=== PATIENT | female | born 1955 | race Caucasian/White ===

== ENCOUNTER 2016-09-30 17:24 | Inpatient (IN) | payer BC ==
[2016-09-30] MEDS ORDERED: NS 0.9% 1000 ML* 1,000 ML IV ONE ×2 (17:59→18:00)
[2016-09-30] MEDS ORDERED: Piperac/Tazob 3.375 gm in NS* 3.375 GM/100 ML BAG IVPB ONE (18:00)
[2016-09-30 18:30] LABS: Hematocrit 32 % (35-47); Hemoglobin 10.4 g/dl (12.0-16.0); Mean Corpuscular HGB Conc 33 g/dl (31-36); Mean Corpuscular Hemoglobin 30 pg (27-31); Mean Corpuscular Volume 91 fL (80-97); Mean Platelet Volume 8 um3 (7.4-10.4); Red Blood Count 3.51 10^6/ul (4.0-5.4); Red Cell Distribution Width 17 % (10.5-15); White Blood Count 14.5 10^3/ul (3.5-10.8)
--- NOTE | 2016-09-30 18:30 | RAD ---
HISTORY: Fever, chemotherapy, evaluate for pneumonia COMPARISONS: February 17, 2016 VIEWS:1: Single frontal portable view of the chest at 6:05 PM FINDINGS: LINES AND TUBES: None. CARDIOMEDIASTINAL SILHOUETTE: The cardiomediastinal silhouette is obscured, and shifted to the left. PLEURA: The patient appears to be status post left pneumonectomy. LUNG PARENCHYMA: There is opacification of the left hemithorax. The patient appears to be status post left pneumonectomy ABDOMEN: The upper abdomen is clear. There is no subphrenic gas. BONES AND SOFT TISSUES: No bone or soft tissue abnormalities are noted. IMPRESSION: 1. THERE IS OPACIFICATION OF LEFT HEMITHORAX. THE PATIENT APPEARS TO BE STATUS POST LEFT PNEUMONECTOMY. IN THE ABSENCE OF A HISTORY OF PNEUMONECTOMY, THIS MAY REPRESENT A LARGE PLEURAL EFFUSION. 2. THE RIGHT LUNG FIELD IS CLEAR.
[2016-09-30 18:31] LABS: Add Diff/Slide Review? Slide Review Added; Comments Flag Yes
[2016-09-30 18:36] LABS: Urine Bilirubin Negative (Negative); Urine Glucose Negative (Negative); Urine Nitrite Negative (Negative)
[2016-09-30 18:43] LABS: Albumin 3.8 g/dL (3.2-5.2); BUN/Creatinine Ratio 11.7 (8-20); Calcium 9.2 mg/dL (8.6-10.3); EGFR African American 98.3 (>60); EGFR Non-African American 76.5 (>60); Globulin 3.3 g/dL (2-4); Total Bilirubin 0.2 mg/dL (0.2-1.0); Total Protein 7.1 g/dL (6.4-8.9)
[2016-09-30] MEDS ORDERED: Acetaminophen TAB* 325 MG ONE (18:50)
[2016-09-30 18:57] LABS: Eosinophils % 1 % (0-6); Immature Granulocytes 20 % (0-9); Macrocytosis 1+; Microcytosis 1+; Neutrophil % 67 % (38-83); Polychromasia 1+; Reactive Lymph % 1 % (0-6)
[2016-09-30] MEDS ORDERED: Acetaminophen TAB* 325 MG PO ONE (18:57)
[2016-09-30] MEDS ORDERED: Ciprofloxacin 400MG IVPREMIX(* 400 MG/200 ML BAG IVPB ONE (19:06)
[2016-09-30] MEDS ORDERED: Vancomycin(*) 1,000 MG in NS 0.9% 250 ML* 250 ML IVPB ONE (19:07)
[2016-09-30 19:12] LABS: Potassium 4.1 mmol/L (3.5-5.0)
[2016-09-30] MEDS ORDERED: Ondansetron INJ* 2 MG/ML VIAL IV PRN (19:51)
[2016-09-30] MEDS ORDERED: Piperac/Tazob 3.375 gm in NS* 3.375 GM/100 ML BAG IVPB SCH (20:00)
--- NOTE | 2016-09-30 20:21 | ED ---
Christopher Willingham Anna, scribed for Connor James MD on 09/30/16 at 1800 . HPI Febrile Illness - HPI Summary HPI Summary: Patient is a 61-year-old female coming to [facility] presenting with a fever that peaked this afternoon at 100.8. The patient is receiving chemotherapy treatment at [facility], most recently 10 days ago. Her doctor told her to go to the ED if her temperature surpassed 100.4, so she came to the ED today. With the fever, she experienced chills and shaking. Additionally, she has a cough at baseline, but she feels like her cough started to change last night. This morning it felt more like a cold. Denies urinary symptoms, vomiting, diarrhea, rashes, headache , neck pain, or pain of any kind. She was previously on medication for nausea, which she stopped taking a few days ago. She is taking medication for her cough. 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 The cancer has spread and she is receiving chemotherapy treatment now. - History of Current Complaint Chief Complaint: EDFever Time Seen by Provider: 09/30/16 17:44 Hx Obtained From: Patient, Family/Supervisor Filling And Packing - , daughter, and son Pain Intensity: 0 - Allergy/Home Medications Allergies/Adverse Reactions: Allergies Allergy/AdvReac Type Severity Reaction Status Date / Time No Known Allergies Allergy Verified 09/30/16 17:27 PMH/Surg Hx/FS Hx/Imm Hx Endocrine/Hematology History: Denies: Hx Diabetes, Hx Thyroid Disease Cardiovascular History: Denies: Hx Hypertension Respiratory History: Reports: Hx Asthma Denies: Hx Chronic Obstructive Pulmonary Disease (COPD) GI History: Denies: Hx Ulcer - Cancer History Cancer Type, Location and Year: atypical carcinoid tumor with mets Hx Chemotherapy: Yes - Surgical History Surgery Procedure, Year, and Place: wisdom teeth; LEFT PNEUMONECTOMY Infectious Disease History: No Infectious Disease History: Denies: Hx Clostridium Difficile, Hx Hepatitis, Hx Human Immunodeficiency Virus (HIV), Hx of Known/Suspected MRSA, Hx Shingles, Hx Tuberculosis, Hx Known/ Suspected VRE, Hx Known/Suspected VRSA, History Other Infectious Disease, Traveled Outside the [place] in Last 30 Days - Family History Known Family History: Positive: Hypertension - Social History Lives: With Family Alcohol Use: None Alcohol Amount: 2 drinks Substance Use Type: Reports: None Hx Tobacco Use: No Smoking Status (MU): Never Smoked Tobacco Review of Systems Positive: Fever, Chills Positive: Cough All Other Systems Reviewed And Are Negative: Yes Physical Exam - Summary Physical Exam Summary: General: Comfortable, pleasant, alert, nontoxic HEENT: Moist mucosa, pharynx no redness or exudate, No sinus percussion tenderness. TMs pearly white, no effusions. Neck: Soft, supple, no adenopathy, no edema, full range of motion. No mastoid tenderness. Heart: S1, S2, no murmurs, rubs, or gallops, tachycardic regular Lungs: Clear to auscultation, breathing comfortable, no wheezes or rales. Diminshed breath sounds on left. Abdominal: Soft, flat, nontender. No CVA tenderness. Extremities: No edema, no calf tenderness, calves soft. Neuro: Alert and oriented x 3 Psych: Logical, coherent Triage Information Reviewed: Yes Vital Signs On Initial Exam: Initial Vitals Temp Pulse Resp BP Pulse Ox 99.7 F 127 18 126/57 100 09/30/16 17:26 09/30/16 17:26 09/30/16 17:26 09/30/16 17:26 09/30/16 17:26 Vital Signs Reviewed: Yes Diagnostics - Vital Signs Vital Signs Temp Pulse Resp BP Pulse Ox 09/30/16 17:38 102 F 09/30/16 17:26 99.7 F 127 18 126/57 100 - Laboratory Lab Results: Lab Results 09/30/16 09/30/16 09/30/16 Range/Units 18:05 18:05 18:05 WBC 14.5 H (3.5-10.8) 10^3/ul RBC 3.51 L (4.0-5.4) 10^6/ul Hgb 10.4 L (12.0-16.0) g/dl Hct 32 L (35-47) % MCV 91 (80-97) fL MCH 30 (27-31) pg MCHC 33 (31-36) g/dl RDW 17 H (10.5-15) % Plt Count 351 (150-450) 10^3/ul MPV 8 (7.4-10.4) um3 Immature Gran % (Auto) 20 H (0-9) % Neut % (Auto) 85.8 H (38-83) % Lymph % (Auto) 5.6 L (25-47) % [place] % (Auto) 8.1 (1-9) % Eos % (Auto) 0.1 (0-6) % Baso % (Auto) 0.4 (0-2) % Absolute Neuts (auto) 12.5 H (1.5-7.7) 10^3/ul Absolute Lymphs (auto) 0.8 L (1.0-4.8) 10^3/ul Absolute Monos (auto) 1.2 H (0-0.8) 10^3/ul Absolute Eos (auto) 0 (0-0.6) 10^3/ul Absolute Basos (auto) 0.1 (0-0.2) 10^3/ul Absolute Nucleated RBC 0.01 10^3/ul Neutrophils % 67 (38-83) % Band Neutrophils % 20 H (0-8) % Lymphocytes % 4 L (25-47) % Reactive Lymphs % 1 (0-6) % Monocytes % 7 (0-13) % Eosinophils % 1 (0-6) % Nucleated RBC % 0 Normal RBC Morphology Not Reportable Polychromasia 1+ Microcytosis 1+ Macrocytosis 1+ INR (Anticoag Therapy) 1.01 (0.89-1.11) APTT 28.6 (26.0-36.3) seconds Sodium 134 (133-145) mmol/L Potassium 4.1 (3.5-5.0) mmol/L Chloride 100 L (101-111) mmol/L Carbon Dioxide 27 (22-32) mmol/L Anion Gap 7 (2-11) mmol/L BUN 9 (6-24) mg/dL Creatinine 0.77 (0.51-0.95) mg/dL Est GFR ( Amer) 98.3 (>60) Est GFR (Non-Af Amer) 76.5 (>60) BUN/Creatinine Ratio 11.7 (8-20) Glucose 115 H (70-100) mg/dL Lactic Acid (0.5-2.0) mmol/L Calcium 9.2 (8.6-10.3) mg/dL Total Bilirubin 0.20 (0.2-1.0) mg/dL AST 27 (13-39) U/L ALT 44 (7-52) U/L Alkaline Phosphatase 165 H (34-104) U/L Total Protein 7.1 (6.4-8.9) g/dL Albumin 3.8 (3.2-5.2) g/dL Globulin 3.3 (2-4) g/dL Albumin/Globulin Ratio 1.2 (1-3) Procalcitonin (<0.6) ng/mL Urine Color Urine Appearance Urine pH (5-9) Ur Specific [place] (1.010-1.030) Urine Protein (Negative) Urine Ketones (Negative) Urine Blood (Negative) Urine Nitrate (Negative) Urine Bilirubin (Negative) Urine Urobilinogen (Negative) Ur Leukocyte Esterase (Negative) Urine Glucose (Negative) Influenza A (Rapid) (Negative) Influenza B (Rapid) (Negative) 09/30/16 09/30/16 09/30/16 Range/Units 18:05 18:05 18:15 WBC (3.5-10.8) 10^3/ul RBC (4.0-5.4) 10^6/ul Hgb (12.0-16.0) g/dl Hct (35-47) % MCV (80-97) fL MCH (27-31) pg MCHC (31-36) g/dl RDW (10.5-15) % Plt Count (150-450) 10^3/ul MPV (7.4-10.4) um3 Immature Gran % (Auto) (0-9) % Neut % (Auto) (38-83) % Lymph % (Auto) (25-47) % [place] % (Auto) (1-9) % Eos % (Auto) (0-6) % Baso % (Auto) (0-2) % Absolute Neuts (auto) (1.5-7.7) 10^3/ul Absolute Lymphs (auto) (1.0-4.8) 10^3/ul Absolute Monos (auto) (0-0.8) 10^3/ul Absolute Eos (auto) (0-0.6) 10^3/ul Absolute Basos (auto) (0-0.2) 10^3/ul Absolute Nucleated RBC 10^3/ul Neutrophils % (38-83) % Band Neutrophils % (0-8) % Lymphocytes % (25-47) % Reactive Lymphs % (0-6) % Monocytes % (0-13) % Eosinophils % (0-6) % Nucleated RBC % Normal RBC Morphology Polychromasia Microcytosis Macrocytosis INR (Anticoag Therapy) (0.89-1.11) APTT (26.0-36.3) seconds Sodium (133-145) mmol/L Potassium (3.5-5.0) mmol/L Chloride (101-111) mmol/L Carbon Dioxide (22-32) mmol/L Anion Gap (2-11) mmol/L BUN (6-24) mg/dL Creatinine (0.51-0.95) mg/dL Est GFR ( Amer) (>60) Est GFR (Non-Af Amer) (>60) BUN/Creatinine Ratio (8-20) Glucose (70-100) mg/dL Lactic Acid 1.0 (0.5-2.0) mmol/L Calcium (8.6-10.3) mg/dL Total Bilirubin (0.2-1.0) mg/dL AST (13-39) U/L ALT (7-52) U/L Alkaline Phosphatase (34-104) U/L Total Protein (6.4-8.9) g/dL Albumin (3.2-5.2) g/dL Globulin (2-4) g/dL Albumin/Globulin Ratio (1-3) Procalcitonin 0.3 (<0.6) ng/mL Urine Color Colorless Urine Appearance Clear Urine pH 5.0 (5-9) Ur Specific [place] 1.000 L (1.010-1.030) Urine Protein Negative (Negative) Urine Ketones Negative (Negative) Urine Blood Negative (Negative) Urine Nitrate Negative (Negative) Urine Bilirubin Negative (Negative) Urine Urobilinogen Negative (Negative) Ur Leukocyte Esterase Negative (Negative) Urine Glucose Negative (Negative) Influenza A (Rapid) (Negative) Influenza B (Rapid) (Negative) 09/30/16 Range/Units 18:45 WBC (3.5-10.8) 10^3/ul RBC (4.0-5.4) 10^6/ul Hgb (12.0-16.0) g/dl Hct (35-47) % MCV (80-97) fL MCH (27-31) pg MCHC (31-36) g/dl RDW (10.5-15) % Plt Count (150-450) 10^3/ul MPV (7.4-10.4) um3 Immature Gran % (Auto) (0-9) % Neut % (Auto) (38-83) % Lymph % (Auto) (25-47) % [place] % (Auto) (1-9) % Eos % (Auto) (0-6) % Baso % (Auto) (0-2) % Absolute Neuts (auto) (1.5-7.7) 10^3/ul Absolute Lymphs (auto) (1.0-4.8) 10^3/ul Absolute Monos (auto) (0-0.8) 10^3/ul Absolute Eos (auto) (0-0.6) 10^3/ul Absolute Basos (auto) (0-0.2) 10^3/ul Absolute Nucleated RBC 10^3/ul Neutrophils % (38-83) % Band Neutrophils % (0-8) % Lymphocytes % (25-47) % Reactive Lymphs % (0-6) % Monocytes % (0-13) % Eosinophils % (0-6) % Nucleated RBC % Normal RBC Morphology Polychromasia Microcytosis Macrocytosis INR (Anticoag Therapy) (0.89-1.11) APTT (26.0-36.3) seconds Sodium (133-145) mmol/L Potassium (3.5-5.0) mmol/L Chloride (101-111) mmol/L Carbon Dioxide (22-32) mmol/L Anion Gap (2-11) mmol/L BUN (6-24) mg/dL Creatinine (0.51-0.95) mg/dL Est GFR ( Amer) (>60) Est GFR (Non-Af Amer) (>60) BUN/Creatinine Ratio (8-20) Glucose (70-100) mg/dL Lactic Acid (0.5-2.0) mmol/L Calcium (8.6-10.3) mg/dL Total Bilirubin (0.2-1.0) mg/dL AST (13-39) U/L ALT (7-52) U/L Alkaline Phosphatase (34-104) U/L Total Protein (6.4-8.9) g/dL Albumin (3.2-5.2) g/dL Globulin (2-4) g/dL Albumin/Globulin Ratio (1-3) Procalcitonin (<0.6) ng/mL Urine Color Urine Appearance Urine pH (5-9) Ur Specific [place] (1.010-1.030) Urine Protein (Negative) Urine Ketones (Negative) Urine Blood (Negative) Urine Nitrate (Negative) Urine Bilirubin (Negative) Urine Urobilinogen (Negative) Ur Leukocyte Esterase (Negative) Urine Glucose (Negative) Influenza A (Rapid) Negative (Negative) Influenza B (Rapid) Negative (Negative) Result Diagrams: 09/30/16 18:05 09/30/16 18:05 Lab Statement: Any lab studies that have been ordered have been reviewed, and results considered in the medical decision making process. - Radiology CXR Xray Interpretation: Positive (See Comments) Radiology Interpretation Completed By: Radiologist - IMPRESSION: 1. THERE IS OPACIFICATION OF LEFT HEMITHORAX. THE PATIENT APPEARS TO BE STATUS POST LEFT PNEUMONECTOMY. IN THE ABSENCE OF A HISTORY OF PNEUMONECTOMY, THIS MAY REPRESENT A LARGE PLEURAL EFFUSION. 2. THE RIGHT LUNG FIELD IS CLEAR. Course/Dx - Course Assessment/Plan: She has been dealing with carcinoid tumor of the lung and has already had 3 rounds of chemotherapy with the last one ten days ago. Her fever today was 100.8. White count noted. Antibiotics have been started as at this point there is no sign that this is an obvious viral source. She does clearly meet SIRS criteria. Accepted for admission by Dr. Velez. - Diagnoses Provider Diagnoses: Sepsis, Immunocompromised - Provider Notifications Discussed Care Of Patient With: Dr. Velez (hospitalist) at 19:10. Agrees to admit patient. - Critical Care Time Critical Care Time: 30-74 min - Sepsis Discharge - Discharge Plan Condition: Guarded Disposition: ADMITTED TO [facility] The documentation as recorded by the Christopher murillo Anna accurately reflects the service I personally performed and the decisions made by , Connor James MD.
--- NOTE | 2016-09-30 20:33 | RAD ---
HISTORY: Fever, status post pneumonectomy COMPARISONS: Chest x-ray dated September 30, 2016, CT dated February 23, 2016 TECHNIQUE: Multiple contiguous axial CT scans of the chest were obtained without intravenous contrast. Coronal and sagittal multiplanar reformations are also submitted for review. FINDINGS: NECK AND THYROID: The lower neck and thyroid are unremarkable. CHEST WALL: There is no lower cervical, axillary, or supraclavicular lymphadenopathy by size criteria. HEART AND PERICARDIUM: The heart is shifted to the left. The heart is unremarkable. AORTA AND PULMONARY VASCULATURE: The vasculature is shifted to the left. The vasculature is unremarkable for technique. MEDIASTINUM: The mediastinum is shifted to the left. ANGELES: The patient appears to be status post left colectomy. The right hilum is unremarkable. AIRWAY AND ESOPHAGUS: The airway is unremarkable, without endobronchial filling defect. The esophagus is grossly normal. LUNG PARENCHYMA: There is hyperinflation of the right lung. The right lung is clear. The patient is status post left pneumonectomy. PLEURA: The patient is status post left pneumonectomy, with left-sided fibrothorax. UPPER ABDOMEN: The upper abdomen is unremarkable. BONES AND SOFT TISSUES: There are postthoracotomy changes of the left hemithorax OTHER: None. IMPRESSION: STATUS POST LEFT CONVEXITY. THE RIGHT LUNG IS CLEAR
[2016-09-30] MEDS: Azithromycin IV(*) 500 MG in NS 0.9% 250 ML* 250 ML IVPB SCH (22:14)
[2016-09-30] MEDS: NS 0.9% 1000 ML* 1,000 ML IV SCH (22:14)
[2016-09-30] MEDS: Oseltamivir CAP* 75 MG PO SCH (22:48)
[2016-09-30] MEDS: Enoxaparin(*) 40 MG/0.4 ML SYR SUBCUT SCH (22:48)
--- NOTE | 2016-09-30 23:05 | HP ---
ADMISSION HISTORY AND PHYSICAL: DATE OF ADMISSION: 10/02/16 PRIMARY CARE PHYSICIAN: Unknown. ADMITTING PROVIDER: AZAR Barrientos. SUPERVISING PHYSICIAN: Dr. Jacque Velez. * (DICTATED BY AZAR BARRIENTOS) CHIEF COMPLAINT: Fever. HISTORY OF PRESENT ILLNESS: This is a 61-year-old female with a history of carcinoid tumor, status post left pneumonectomy, who is currently being treated at [facility] with etoposide and carboplatin every 3 weeks. Last chemo infusion was approximately 10 days ago. She recently completed her third round. The patient states that starting this morning, she just was not feeling well. She had really no focal complaints other than a nonproductive cough. She has had a cough since chemo was started, but feels like today, it was perhaps a little bit worse. No sputum production. No complaints of shortness of breath or chest pain. Denies any associated GI complaints including abdominal pain, nausea, or vomiting. She has had no sick contacts. She denies any myalgias or arthralgias. She did get the influenza vaccination this year. She had a measured fever of 100.8 degrees Fahrenheit at home and proceeded to the emergency department for further evaluation. The patient denies any other associated symptoms including urinary symptoms or associated rash. No sinus pain or pressure. PAST MEDICAL HISTORY: Carcinoid with metastases, treated at [facility], status post left pneumonectomy. PAST SURGICAL HISTORY: Left pneumonectomy. HOME MEDICATIONS: 1. Etoposide and carboplatin every three weeks at [facility]. 2. Tessalon Perles as needed. 3. Neulasta following her chemo infusion. SOCIAL HISTORY: The patient lives at home with her and son. 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 No significant history of tobacco use. No regular alcohol consumption. REVIEW OF SYSTEMS: As mentioned in HPI. PHYSICAL EXAMINATION GENERAL: This is a very pleasant middle-aged female in no acute distress. She does appear mildly ill and is accompanied by her and son. VITAL SIGNS: Initial vitals, maximum temperature of 102 degrees Fahrenheit, pulse 127 beats per minute, oxygen saturation 100% on room air, blood pressure 126/57 mmHg. HEENT: Head is normocephalic and atraumatic. Mucous membranes are pink and moist. Posterior pharynx is pink without exudate. NECK: Free of lymphadenopathy. Supple and nontender. RESPIRATORY: Lungs are clear to auscultation without wheezes, crackles, or rhonchi. CARDIOVASCULAR: Heart has a regular rate and rhythm without murmurs, rubs, or gallops. ABDOMEN: Abdomen is soft and nontender to palpation with bowel sounds present. EXTREMITIES: Lower extremities are free of edema. PSYCH: The patient is alert and appropriately oriented. SKIN: Limited exam shows no abnormal rashes or lesions. DIAGNOSTIC STUDIES/LAB DATA: White blood cell count of 14,500, hemoglobin 10.4 g/dL, platelet count of 351,000. INR normal at 1.01. Comprehensive metabolic panel is essentially within normal limits with a sodium of 134 mmol/L, potassium 4.1, BUN 9, creatinine 0.77 with an estimated GFR of 76 , random glucose 115 mg/dL. Lactic acid normal at 1.0. Transaminases within normal limits and total bilirubin. Procalcitonin is pending. Influenza screening is negative. Urinalysis is unremarkable. Imaging: Chest x-ray shows that she is status post left pneumonectomy. There is no obvious infiltrate in the right lung field. ASSESSMENT AND PLAN: This is a 61-year-old female with history of carcinoid, status post left pneumonectomy, actively treated at [facility] with etoposide and carboplatin, who presents with fever. Suspect a respiratory source. 1. Acute febrile illness - suspect a respiratory source of infection. Chest x- ray shows no obvious infiltrate but it is difficult to interpret given her pneumonectomy. I have ordered a CT scan of the chest to evaluate further. We will treat for presumed respiratory pathogens with Zosyn and azithromycin. The patient received Zosyn, Cipro, and vancomycin in the emergency department. There is no evidence of bronchospasm on exam. Blood cultures are pending at this time. The patient does not appear septic. She does not require ICU care. 2. Carcinoid - the patient is treated at [facility] - no records are available at this time. She is status post left pneumonectomy and under active treatment with etoposide and carboplatin every three weeks, last cycle was approximately 10 days ago. Of note, she did receive Neulasta shortly after her last infusion. 3. Anemia - this is mild, assume that it is related to her chemotherapy. 4. Code status. The patient is a full code. 5. DVT prophylaxis. The patient will be placed on 40 mg of Lovenox subcu daily. 6. Healthcare proxy is her . DISPOSITION: The patient will be admitted to the medical floor for inpatient status. ANTICIPATED LENGTH OF STAY: Greater than 2 days. AZAR BARRIENTOS [id number]/CPS #: [id number] MTDTina
[2016-10-01] MEDS: Piperac/Tazob 3.375 gm in NS* 3.375 GM/100 ML BAG IVPB SCH ×4 (00:56→23:22)
[2016-10-01] MEDS: Acetaminophen TAB* 325 MG PO PRN ×2 (03:41→19:47)
[2016-10-01 06:43] LABS: Hematocrit 28 % (35-47); Hemoglobin 9.2 g/dl (12.0-16.0); Mean Corpuscular HGB Conc 33 g/dl (31-36); Mean Corpuscular Hemoglobin 30 pg (27-31); Mean Corpuscular Volume 91 fL (80-97); Mean Platelet Volume 8 um3 (7.4-10.4); Red Blood Count 3.06 10^6/ul (4.0-5.4); Red Cell Distribution Width 17 % (10.5-15); White Blood Count 14.1 10^3/ul (3.5-10.8)
[2016-10-01 06:54] LABS: Add Diff/Slide Review? Slide Review Added; BUN/Creatinine Ratio 6.9 (8-20); Calcium 8.2 mg/dL (8.6-10.3); Comments Flag Yes; EGFR African American 106.3 (>60); EGFR Non-African American 82.6 (>60); Potassium 3.7 mmol/L (3.5-5.0)
[2016-10-01 07:30] LABS: Immature Granulocytes 15 % (0-9); Metamyelocytes % 4 % (0-2); Myelocytes % 4 % (0-1); Neutrophil % 74 % (38-83)
[2016-10-01 07:32] LABS: Macrocytosis 1+
[2016-10-01 07:33] LABS: Polychromasia 1+
[2016-10-01 07:34] LABS: Microcytosis 1+
[2016-10-01] MEDS: Oseltamivir CAP* 75 MG PO SCH ×2 (08:25→20:19)
[2016-10-01] MEDS ORDERED: NS 0.9% 500 ML* 500 ML IV ONE (09:00)
[2016-10-01] MEDS: NS 0.9% 1000 ML* 1,000 ML IV SCH (09:00)
--- NOTE | 2016-10-01 17:43 | PN ---
Subjective Date of Service: 10/01/16 Interval History: Interviewed and examined patient at bedside; Reviewed previous notes and radiology results; patient's main complaint is cough -- which is a characterisic of her carcinoid. discussed continuing to carefully monitor given her fever and hypotension and unclear WBC (recent chemo + neulasta) she is certainly immunosuppressed and therefore a complex patient wo requires inpatient monitoring. . Family History: Unchanged from Admission Social History: Unchanged from Admission Past Medical History: Unchanged from Admission Objective Active Medications: . Acetaminophen (Tylenol Tab*) 650 mg PO Q4H PRN PRN Reason: FEVER/PAIN Last Admin: 10/01/16 03:41 Dose: 650 mg Enoxaparin Sodium (Lovenox(*)) 40 mg SUBCUT Q24H [facility] Last Admin: 09/30/16 22:48 Dose: 40 mg Sodium Chloride (Ns 0.9% 1000 Ml*) 1,000 mls @ 75 mls/hr IV PER RATE [facility] Last Admin: 10/01/16 09:00 Dose: 75 mls/hr Azithromycin 500 mg/ Sodium (Chloride) 250 mls @ 250 mls/hr IVPB Q24H [facility] Last Admin: 09/30/16 22:14 Dose: 250 mls/hr Piperacillin Sod/Tazobactam Sod (Zosyn 3.375 Gm In Ns Premix*) 3.375 gm in 100 mls @ 25 mls/hr IVPB Q8H [facility] Last Admin: 10/01/16 15:12 Dose: 25 mls/hr Ondansetron HCl (Zofran Inj*) 4 mg IV Q4H PRN PRN Reason: NAUSEA/VOMITING Oseltamivir Phosphate (Tamiflu Cap*) 75 mg PO BID [facility] Stop: 10/05/16 09:01 Last Admin: 10/01/16 08:25 Dose: 75 mg Vital Signs 09/30/16 09/30/16 09/30/16 20:00 22:01 22:02 Temperature 98.8 F 98.8 F Pulse Rate 102 95 95 Respiratory 18 16 16 Rate Blood Pressure 100/61 108/57 108/57 (mmHg) O2 Sat by Pulse 96 100 100 Oximetry 09/30/16 10/01/16 10/01/16 22:20 03:31 07:29 Temperature 100.9 F 98.1 F Pulse Rate 81 77 Respiratory 16 16 20 Rate Blood Pressure 101/54 81/49 (mmHg) O2 Sat by Pulse 100 98 Oximetry Appearance: NAD at this time Eyes: No Scleral Icterus Ears/Nose/Mouth/Throat: Clear Oropharnyx Neck: Trachea Midline Respiratory: Symmetrical Chest Expansion and Respiratory Effort Cardiovascular: NL Sounds; No Murmurs; No JVD Abdominal: NL Sounds; No Tenderness; No Distention Lymphatic: No Cervical Adenopathy Extremities: No Edema Skin: No Rash or Ulcers Neurological: Alert and Oriented x 3 Lines/Tubes/Other Access: Clean, Dry and Intact Peripheral IV Nutrition: Taking PO's Result Diagrams: 10/01/16 06:22 10/01/16 06:22 Additional Lab and Data: . Assess/Plan/Problems-Billing . Assessment: 61 yo female undergoing chemotherapy for metastatic carcinoid tumor -- now admitted for fever following chemotherapy within the last 10 days. she has received leulasta, but is still at high risk for opportunistic infection. CXR and CT Chest did not show infiltrate and cough is also characteristic of her carcinoid -- confounding hte situation. All in all, patient is most appropriate for further inpatient monitoring and treatment of presumed infection with ongoing IVF and careful follow up. All of her oncologic care is in [facility]. . - Patient Problems (1) Sepsis Current Visit: Yes Status: Acute Priority: High Comment: - qSOFA/SOFA sore indicates sepsis (WBC/T/BP) - Likely source is pulmonary, though no infiltrate seen - Agree with empiric pulmonary abx coverage (2) Immunosuppressed status Current Visit: Yes Status: Acute Priority: High Code(s): D89.9 - DISORDER INVOLVING THE IMMUNE MECHANISM, UNSPECIFIED Comment: - recent chemo noted - recent neulasta confounds interpretation of WBC. (3) Metastatic carcinoid tumor Current Visit: Yes Status: Chronic Priority: High Code(s): C7B.00 - SECONDARY CARCINOID TUMORS, UNSPECIFIED SITE (4) Respiratory tract infection Current Visit: Yes Status: Acute Priority: High Code(s): J98.8 - OTHER SPECIFIED RESPIRATORY DISORDERS Comment: - Cough characteristic for carcinoid also possibly related to respiratory infection
[2016-10-01] MEDS: Enoxaparin(*) 40 MG/0.4 ML SYR SUBCUT SCH (20:19)
[2016-10-01] MEDS: Azithromycin IV(*) 500 MG in NS 0.9% 250 ML* 250 ML IVPB SCH (22:02)
[2016-10-02] MEDS: Piperac/Tazob 3.375 gm in NS* 3.375 GM/100 ML BAG IVPB SCH (06:18)
[2016-10-02] MEDS: NS 0.9% 1000 ML* 1,000 ML IV SCH (06:20)
[2016-10-02 06:42] LABS: Hematocrit 29 % (35-47); Hemoglobin 9.7 g/dl (12.0-16.0); Mean Corpuscular HGB Conc 33 g/dl (31-36); Mean Corpuscular Hemoglobin 30 pg (27-31); Mean Corpuscular Volume 91 fL (80-97); Mean Platelet Volume 7 um3 (7.4-10.4); Red Blood Count 3.24 10^6/ul (4.0-5.4); Red Cell Distribution Width 17 % (10.5-15); White Blood Count 17.2 10^3/ul (3.5-10.8)
[2016-10-02 06:48] LABS: Add Diff/Slide Review? Slide Review Added; Comments Flag Yes
[2016-10-02 07:26] LABS: Eosinophils % 1 % (0-6); Immature Granulocytes 14 % (0-9); Metamyelocytes % 4 % (0-2); Myelocytes % 3 % (0-1); Neutrophil % 61 % (38-83)
[2016-10-02 07:28] LABS: Microcytosis 1+
[2016-10-02 07:29] LABS: Toxic Granulation 1+
[2016-10-02 07:30] LABS: Polychromasia 1+; Tear Drop Cells 1+
[2016-10-02 07:41] LABS: BUN/Creatinine Ratio 7.1 (8-20); Calcium 8.2 mg/dL (8.6-10.3); EGFR African American 109.8 (>60); EGFR Non-African American 85.4 (>60); Potassium 3.9 mmol/L (3.5-5.0)
[2016-10-02 07:44] VITALS: BP 98/56
--- NOTE | 2016-10-02 12:56 | RAD ---
INDICATION: Cough and fever COMPARISON: Similar chest x-ray dated September 30, [address] of the chest dated September 30, 2016 TECHNIQUE: Single AP portable view of the chest was obtained. FINDINGS: Image quality is compromised due to the relative inferiority of a portable chest x-ray. Similar the previous chest x-ray there is complete opacification of the left lung with mediastinal shift from the right to the left. The right lung is adequately aerated. IMPRESSION: Unchanged in the previous chest x-ray there is complete opacification of the left hemithorax with right to left mediastinal shift. According to the prior CT examination the patient is status post left pneumonectomy and therefore this probably represents a large effusion.
--- NOTE | 2016-10-02 19:23 | PN ---
Hospitalist Progress Note . HOSPITALIST DISCHARGE NOTE: See dc instructions and summary by me. Patient stable for dc dc instructions reviewed with the patient at the bedside. DC patient home today.
--- NOTE | 2016-10-03 15:06 | DS ---
CC: Dr. Reed DISCHARGE SUMMARY: DATE OF ADMISSION: 09/30/16 DATE OF DISCHARGE: 10/02/16 STATUS DURING HOSPITALIZATION: Inpatient. PRIMARY CARE PROVIDER: Unknown. OUTPATIENT ONCOLOGIST: Dr. Clayton Reed, phone #[phone]. Second phone # is [phone]. . PRINCIPAL DISCHARGE DIAGNOSIS: Fever, status post chemotherapy for metastatic carcinoid tumor/stable for discharge. SECONDARY DIAGNOSES: 1. Left pneumonectomy for primary cancer removal. 2. History of carcinoid tumor with metastasis treated at [facility] where she had a pneumonectomy and is receiving chemotherapy. DISCHARGE MEDICATIONS: 1. New: Levofloxacin 500 mg by mouth daily for 5 days then stop. 2. New: Guaifenesin/codeine 100 mg/10 mg 10 mL by mouth at night p.r.n. cough to promote sleep. 3. Continue Tessalon Perles 100 mg by mouth up to 3 times daily p.r.n. cough. 4. Continue etoposide/carboplatin every three weeks at [facility] with Neulasta following chemo infusion - as directed by Dr. Reed. 5. Continue albuterol inhaler/nebulizer as needed for shortness of breath, bronchodilation preambulation/exertion. HISTORY OF PRESENT ILLNESS AND HOSPITAL COURSE: Please see the H and P by AZAR Landin under the supervision of Dr. Jacque Velez on 09/30/16. In brief, Ms. Hoang is a 61-year-old female with history of carcinoid tumor, status post left pneumonectomy being treated at [facility] with etoposide and carboplatin every three weeks for metastatic recurrence. The patient was not feeling well on the day of admission, but described no focal complaints other than a non- productive cough, which has been present since her chemo regimen was started. The patient states thatt on the day of admission it was bit worse, but there has been no sputum production nor was there any during this hospitalization. The patient was not short of breath nor does she have chest pain. She did not have any GI complaints. She did have a low-grade fever to 100.8 degrees and this prompted her to come to the emergency room at the urging of her family. On admission, the patient's white blood cell count was marginally elevated at 14.5, but of note, the patient received Neulasta following her recent chemotherapy. Her white blood cell count stayed in that range with repeat on at 14.1 and then on 10/02/16 up to 17.2. There was, of course, a pronounced left shift with 20% immature granulocytes on admission, decreasing to 14% on the day of discharge. The patient was initially treated with Zosyn and azithromycin to cover usual pulmonary pathogens. A chest x-ray did not show any infiltrate in her right lung, but again she had a left pneumonectomy with suggestion of an effusion with right to left mediastinal shift on CXR. This was confirmed by a noncontrast Chest CT, which also showed no infiltrate in the right lung and the effusion on the left. The patient continued to be quite stable. Her blood pressure was consistently on the low side, around 90 mmHg systolic pressure over 60 mmHg diastolic p-- and this was consistent with her baseline as per the patient and her family. She was respiring in the high teens or low 20s, but again this was very stable and the patient was unlabored and communicated with ease. The patient did have one episode of fever to 101.2. Blood cultures were drawn at admission, before antibiotics, and remained without growth through the hospitalization. On the day of discharge, she was consistently afebrile without receiving Tylenol. Out of an over abundance of caution, I am discharging her with oral Levaquin to complete a 5- day course. The patient and her family suggested they may go to [place] to have a reevaluation by her outpatient oncologist, who is directing all of her care at this point, including the chemotherapy infusions, and I encouraged her to do this for her peace of mind. We discussed that carcinoid tumors can themselves cause coughing and fluctuating temperature and this might be exacerbated immediately after chemotherapy. On the other hand, it is certainly possible that she is suffering from an opportunistic infection, although given her white blood cell count is trending upward with generally only low grade fevers at this point following chemotherapy, it is also possible if not likely that this is related to her metastatic carcinoid tumor. I would also note that the patient had a repeat chest x-ray on the day of discharge that did not show any new infiltrate despite consistent hydration throughout her hospitalization. I instructed Ms. Hoang to come back to the hospital if she has any worrisome symptoms including, but not limited to chest pain, shortness of breath, lightheadedness, high fevers or any other worrisome symptoms. If her cough becomes unbearable, she should also come back to the hospital for reevaluation. TIME SPENT: Total time taken to discharge Ms. Hoang was 40 minutes; greater than half the time spend in the room going over the discharge instructions. [id number]/[facility] #: [id number] MTDD
== END 2016-10-02 15:20 | disposition home or self-care (01) | DRG 720 ==
LOC: ED 17:24 → MED 19:51
PROVIDERS: ADMIT Pediatrics; ATTEND Internal Medicine
DX: A41.9 Sepsis, unspecified organism (principal); C7A.090 Malignant carcinoid tumor of the bronchus and lung; C7B.00 Secondary carcinoid tumors, unspecified site; J98.8 Other specified respiratory disorders; R50.2 Drug induced fever; T45.1X5A Adverse effect of antineoplastic and immunosuppressive drugs, initial encounter; Z79.899 Other long term (current) drug therapy
CPT/HCPCS: 36415; 71010; 71250; 80048; 80053; 81003; 83605; 84145; 85025; 85610; 85730; 86141; 87040; 87502; A9270-GY; J0456; J0744; J1650; J2543; J3370